=== PATIENT | female | born 1965 | race Caucasian/White ===

== ENCOUNTER 2016-11-18 19:13 | Emergency (ER) | payer SELFPAY ==
[~2016-11-18 19:13] MED LIST: ACET325T33 PO; AMOX1TAB10 PO; CEPH-443 PO; LORA1TAB PO; MECL25TA2 PO; PROM5SYR2 PO; TRAM50TA2 PO
== END 2016-11-18 21:20 | disposition left against medical advice (07) ==
LOC: E/R 19:13
DX: Z53.21 Procedure and treatment not carried out due to patient leaving prior to being seen by health care provider (principal)

== ENCOUNTER 2018-05-16 19:23 | Emergency (ER) | END 2018-05-16 21:15 | disposition home or self-care (01) ==